=== PATIENT | female | born 1995 | race Caucasian/White ===

== ENCOUNTER 2018-02-27 18:03 | Emergency (ER) | payer SELFPAY ==
--- NOTE | 2018-02-27 18:07 | PDOC ---
Rapid Medical Evaluation Chief Complaint: Foreign Body (FB) Time Seen by Provider: 02/27/18 18:05 Medical Evaluation: Allergies Allergy/AdvReac Type Severity Reaction Status Date / Time No Known Allergies Allergy Verified 08/06/13 12:51 02/27/18 18:05 I have performed a brief in-person evaluation of this patient. The patient presents with a chief complaint of: retained tampon x 3 days- unable to withdrawl Pertinent physical exam findings: can feel FB, no discharge/ mild pain/ no fevers I have ordered the following: nothing The patient will proceed to the ED for further evaluation. 02/27/18 18:05 Discharge Disposition - Diagnosis Foreign body - Referrals - Patient Instructions - Post Discharge Activity
[2018-02-27 18:46] VITALS: BP 108/76; PULSE 76; TEMP 99.2; BMI 20.7
--- NOTE | 2018-02-27 18:52 | PDOC ---
History of Present Illness - General Chief Complaint: Foreign Body (FB) Stated Complaint: Foreign body in vagina Time Seen by Provider: 02/27/18 18:05 History Source: Patient Exam Limitations: No Limitations - History of Present Illness Travel History: No Initial Comments: 02/27/18 18:49 22 yr female with suspected tampon in her vagina since yesterday Past History - Past Medical History Allergies/Adverse Reactions: Allergies Allergy/AdvReac Type Severity Reaction Status Date / Time No Known Allergies Allergy Verified 02/27/18 18:08 Home Medications: Ambulatory Orders No Home Medications 0 dose .ROUTE UTDICT 08/06/13 COPD: No - Suicide/Smoking/Psychosocial Hx Smoking History: Never smoked Number of Cigarettes Smoked Daily: 0 Information on smoking cessation initiated: No Hx Alcohol Use: No Drug/Substance Use Hx: No Substance Use Type: Alcohol Review of Systems - Review of Systems Able to Perform ROS?: Yes Is the patient limited Ukrainian proficient: No : Yes: Symptoms Reported *Physical Exam - Vital Signs Last Vital Signs Temp Pulse Resp BP Pulse Ox 99.2 F 76 17 108/76 100 02/27/18 18:05 02/27/18 18:05 02/27/18 18:05 02/27/18 18:05 02/27/18 18:05 - Physical Exam General Appearance: Yes: Nourished, Appropriately Dressed HEENT: positive: EOMI, MAURISIO Female Pelvic Exam: positive: normal external exam, cervical os closed, normal adnexa, other (no FB in vaginal vault ). negative: discharge, adnexal tenderness Gastrointestinal/Abdominal: positive: Normal Bowel Sounds, Soft. negative: Tender Medical Decision Making - Medical Decision Making 03/03/18 17:17 cc: suspected FB in vagina, pt thinks she may have a tampon in her vagina no pain or discharge no foul odor exam negative, pt also seen and examined by ROLL[employer] PRINTER Adriana Sánchez in the ER no foreign body seen in the vagina pt given dc inst all questions asked and answered *DC/Admit/Observation/Transfer Diagnosis at time of Disposition: Foreign body - Discharge Dispostion Disposition: HOME Condition at time of disposition: Good - Referrals Referrals: Jennifer Coleman MD [Staff Physician] - - Patient Instructions Additional Instructions: please follow with the spiral machine operator Dr. Sarkar for follow up and [facility] exams [facility] return if any foul smelling vaginal discharge or pain - Post Discharge Activity Forms/Work/School Notes: Back to Work, Back to School
== END 2018-02-27 19:00 | disposition home or self-care (01) ==
LOC: JERFT 18:03
DX: T19.2XXA Foreign body in vulva and vagina, initial encounter (principal)
CPT/HCPCS: 99281-25

== ENCOUNTER 2019-05-02 14:32 | Emergency (ER) | payer OTHER ==
[2019-05-02 14:40] VITALS: BP 110/65; PULSE 84; TEMP 98.4; BMI 21.6
--- NOTE | 2019-05-02 15:44 | PDOC ---
History of Present Illness - General Chief Complaint: Cold Symptoms Stated Complaint: COUGHING/CONGESTED Time Seen by Provider: 05/02/19 14:41 - History of Present Illness Initial Comments: 05/02/19 15:42 23-year-old female without comorbidities presents for evaluation of cough x2 weeks without systemic symptoms intermittent chest pain associated with cough Past History - Past Medical History Allergies/Adverse Reactions: Allergies Allergy/AdvReac Type Severity Reaction Status Date / Time No Known Allergies Allergy Verified 02/27/18 18:08 Home Medications: Ambulatory Orders No Home Medications 0 dose .ROUTE UTDICT 08/06/13 COPD: No - Surgical History Cholecystectomy: No - Immunization History Immunization Up to Date: No - Psycho Social/Smoking Cessation Hx Smoking History: Never smoked Have you smoked in the past 12 months: No Number of Cigarettes Smoked Daily: 0 Information on smoking cessation initiated: No Hx Alcohol Use: No Drug/Substance Use Hx: No Substance Use Type: Alcohol Review of Systems - Review of Systems Constitutional: No: Fever Respiratory: Yes: Cough Cardiac (ROS): Yes: Chest Pain *Physical Exam - Vital Signs Last Vital Signs Temp Pulse Resp BP Pulse Ox 98.4 F 84 18 110/65 99 05/02/19 14:35 05/02/19 14:35 05/02/19 14:35 05/02/19 14:35 05/02/19 14:35 - Physical Exam 05/02/19 15:43 GENERAL: The patient is awake, alert, and fully oriented, in no acute distress. HEAD: Normal with no signs of trauma. EYES: sclera anicteric, conjunctiva clear. ENT: Ears normal tympanic membranes normal oropharynx clear uvula midline NECK: Normal range of motion LUNGS: Breath sounds equal, clear to auscultation bilaterally. No wheezes, and no crackles. HEART: S1 and S2 without murmur, rub or gallop. ABDOMEN: Soft, nontender, normoactive bowel sounds. No guarding, no rebound. No masses. EXTREMITIES: Normal range of motion, no edema. No clubbing or cyanosis. No cords, erythema, or tenderness. NEUROLOGICAL: Cranial nerves II through XII grossly intact. Normal speech, normal gait. PSYCH: Normal mood, normal affect. SKIN: Warm, Dry, normal turgor, no rashes or lesions noted. ED Treatment Course - RADIOLOGY Radiology Studies Ordered: Category Date Time Status CHEST PA & LAT [RAD] Stat Radiology 05/02/19 15:14 Taken Medical Decision Making - Medical Decision Making 05/02/19 15:43 Negative chest x-ray EKG G reviewed with attending follow-up with primary care physician Discharge - Discharge Information Problems reviewed: Yes Clinical Impression/Diagnosis: Viral URI with cough Condition: Stable Disposition: HOME - Admission No - Follow up/Referral Referrals: Zachary Weber MD [Staff Physician] - - Patient Discharge Instructions Patient Printed Discharge Instructions: DI for Viral Upper Respiratory Infection -- Adult Additional Instructions: Return to the emergency room for worsening symptoms. Mucinex as directed for cough follow-up with your primary care physician without fail in 2 to 3 days for further evaluation and treatment options and return to the emergency room should symptoms worsen. - Post Discharge Activity
--- NOTE | 2019-05-03 13:34 | EKG ---
Test Reason : Blood Pressure : / mmHG Vent. Rate : 084 BPM Atrial Rate : 084 BPM P-R Int : 144 ms QRS Dur : 082 ms QT Int : 366 ms P-R-T Axes : -34 053 037 degrees QTc Int : 432 ms UNUSUAL P AXIS, POSSIBLE ECTOPIC ATRIAL RHYTHM ABNORMAL ECG NO PREVIOUS ECGS AVAILABLE Confirmed by MELIZA MENESES MD ([id number]) on 05/03/2019 1:34:12 PM Referred By: Confirmed By:MELIZA MENESES MD
== END 2019-05-02 15:54 | disposition home or self-care (01) ==
LOC: JERFT 14:32
DX: J06.9 Acute upper respiratory infection, unspecified (principal); B97.89 Other viral agents as the cause of diseases classified elsewhere
CPT/HCPCS: 71046-TC-FY; 93005; 93010; 99281-25

== ENCOUNTER 2020-07-21 08:05 | Inpatient (IN) | payer OTHER ==
[2020-07-21] MEDS ORDERED: SODIUM CHLORIDE 1,000 ML IV STA (08:39)
[2020-07-21 09:23] LABS: BASO % 0.2 % (0-2.0); EOS % 0.1 % (0-4.5); HEMATOCRIT 40.4 % (32.4-45.2); HEMOGLOBIN 13.7 GM/dL (10.7-15.3); LYMPH % 9.2 % (8-40); MCH 30.6 pg (25.7-33.7); MCHC 34.1 g/dl (32.0-36.0); MEAN CELL VOLUME 89.9 fl (80-96); NEUT % 80.5 % (42.8-82.8); PLATELET COUNT 233 K/MM3 (134-434); RBC 4.49 M/mm3 (3.60-5.2); RDW 14.3 % (11.6-15.6); WHITE BLOOD COUNT 12.2 K/mm3 (4.0-10.0)
[2020-07-21 09:25] LABS: PH,URINE 6.5 (5.0-8.0); URINE APPEARANCE CLEAR; URINE BILIRUBIN NEGATIVE (NEGATIVE); URINE COLOR YELLOW; URINE GLUCOSE (UA) NEGATIVE (NEGATIVE); URINE KETONE NEGATIVE (NEGATIVE); URINE LEUK ESTERASE NEGATIVE (NEGATIVE); URINE NITRITE NEGATIVE (NEGATIVE); URINE PROTEIN NEGATIVE (NEGATIVE); URINE UROBILINOGEN 0.2 mg/dL (0.2-1.0)
[2020-07-21 09:38] LABS: INR 1.03 (0.83-1.09); PROTHROMBIN TIME (PATIENT) 12.4 SEC (9.7-13.0)
[2020-07-21 09:40] LABS: HCG,QUALITATIVE URINE Negative
[2020-07-21 10:04] LABS: POTASSIUM 3.9 mmol/L (3.5-5.1)
[2020-07-21 10:05] LABS: CALCIUM 9.1 mg/dL (8.5-10.1)
[2020-07-21 10:06] LABS: ALBUMIN 3.9 g/dl (3.4-5.0); BLOOD UREA NITROGEN 7.7 mg/dL (7-18)
[2020-07-21 10:09] LABS: CREATININE 0.7 mg/dL (0.55-1.3)
[2020-07-21 10:10] LABS: BILIRUBIN,TOTAL 0.4 mg/dL (0.2-1)
[2020-07-21 10:11] LABS: TOT PROT 7.8 g/dl (6.4-8.2)
[2020-07-21] MEDS ORDERED: CEFTRIAXONE 2 GM-D5W BAG 2 GM/50 ML BAG IVPB ONE (13:09)
[2020-07-21] MEDS ORDERED: ACETAMINOPHEN 1000 MG/100 ML VIAL (NON FORMULARY) IVPB ONE ×2 (13:09→17:53)
[2020-07-21] MEDS ORDERED: ACETAMINOPHEN INJECTION 100 ML IVPB ONE (13:14)
[2020-07-21] MEDS ORDERED: CEFTRIAXONE 2 GM/100 ML BAG IVPB ONE (13:14)
[2020-07-21] MEDS ORDERED: morphine CARPU-JECT 2 MG/1 ML DISP.SYRIN IVPUSH ONE (17:55)
[2020-07-21] MEDS ORDERED: MORPHINE SULFATE 2 MG/ML VIAL ONE (17:57)
[2020-07-21] MEDS ORDERED: ACETAMINOPHEN 325 MG TABLET (FP) ONE (20:46)
[2020-07-21] MEDS: ACETAMINOPHEN 325 MG TABLET (FP) PO PRN (20:51)
[2020-07-22 02:00] VITALS: BMI 20.7
[2020-07-22] MEDS: MORPHINE SULFATE 2 MG/ML VIAL IVPUSH PRN ×2 (06:41→15:07)
[2020-07-22] MEDS: ACETAMINOPHEN 325 MG TABLET (FP) PO PRN ×2 (06:42→16:48)
[2020-07-22 09:22] LABS: BASO % 0.3 % (0-2.0); EOS % 0.1 % (0-4.5); HEMATOCRIT 37.8 % (32.4-45.2); LYMPH % 11.8 % (8-40); MCH 30.8 pg (25.7-33.7); MCHC 34.4 g/dl (32.0-36.0); MEAN CELL VOLUME 89.6 fl (80-96); MEAN PLT VOLUME 8.3 fl (7.5-11.1); MONO % 12.1 % (3.8-10.2); NEUT % 75.7 % (42.8-82.8); PLATELET COUNT 207 K/MM3 (134-434); POTASSIUM 3.6 mmol/L (3.5-5.1); RBC 4.22 M/mm3 (3.60-5.2); RDW 13.8 % (11.6-15.6); WHITE BLOOD COUNT 12.3 K/mm3 (4.0-10.0)
[2020-07-22 09:27] LABS: BLOOD UREA NITROGEN 5.5 mg/dL (7-18); CALCIUM 9.3 mg/dL (8.5-10.1)
[2020-07-22 09:28] LABS: ALBUMIN 3.4 g/dl (3.4-5.0)
[2020-07-22 09:31] LABS: CREATININE 0.6 mg/dL (0.55-1.3)
[2020-07-22 09:32] LABS: BILIRUBIN,TOTAL 0.7 mg/dL (0.2-1)
[2020-07-22 09:33] LABS: TOT PROT 7.4 g/dl (6.4-8.2)
[2020-07-22] MEDS ORDERED: cefTRIAXone SODIUM 1 GM VIAL ONE (09:49)
[2020-07-22] MEDS ORDERED: DEXTROSE 5%-WATER - 50 ML IVPB ONE ×2 (09:49→16:40)
[2020-07-22] MEDS: ENOXAPARIN NA (PORCINE) 40 MG/0.4 ML DISP.SYRIN SQ SCH (09:52)
[2020-07-22] MEDS ORDERED: CEFTRIAXONE 1 GM in DEXTROSE 5%-WATER - 50 ML IVPB SCH (10:00)
[2020-07-22] MEDS: SODIUM CHLORIDE 1,000 ML IV SCH (15:26)
[2020-07-22] MEDS ORDERED: PIPERACILLIN/TAZOBACTAM 3.375 GM VIAL IVPB ONE (16:40)
[2020-07-22] MEDS: PIPERACILLIN/TAZOB 3.375 GM 3.375 GM in DEXTROSE 5%-WATER - 50 ML IVPB SCH (17:47)
[2020-07-22] MEDS: MELATONIN 5 MG TABLETS PO SCH (21:21)
[2020-07-23] MEDS ORDERED: DEXTROSE 5%-WATER - 50 ML IVPB ONE ×3 (00:23→16:24)
[2020-07-23] MEDS ORDERED: PIPERACILLIN/TAZOBACTAM 3.375 GM VIAL IVPB ONE ×3 (00:23→16:24)
[2020-07-23] MEDS: PIPERACILLIN/TAZOB 3.375 GM 3.375 GM in DEXTROSE 5%-WATER - 50 ML IVPB SCH ×3 (01:00→17:16)
[2020-07-23 09:00] LABS: BASO % 0.5 % (0-2.0); EOS % 0.6 % (0-4.5); HEMOGLOBIN 12.7 GM/dL (10.7-15.3); LYMPH % 14.5 % (8-40); MCH 30.9 pg (25.7-33.7); MCHC 34.2 g/dl (32.0-36.0); MEAN CELL VOLUME 90.3 fl (80-96); MEAN PLT VOLUME 8.1 fl (7.5-11.1); MONO % 15.2 % (3.8-10.2); NEUT % 69.2 % (42.8-82.8); PLATELET COUNT 194 K/MM3 (134-434); RDW 13.7 % (11.6-15.6); WHITE BLOOD COUNT 10.7 K/mm3 (4.0-10.0)
[2020-07-23 09:19] LABS: POTASSIUM 4.1 mmol/L (3.5-5.1)
[2020-07-23 09:24] LABS: BLOOD UREA NITROGEN 7.9 mg/dL (7-18)
[2020-07-23 09:27] LABS: CREATININE 0.6 mg/dL (0.55-1.3)
[2020-07-23 09:28] LABS: BILIRUBIN,TOTAL 0.5 mg/dL (0.2-1); TOT PROT 6.8 g/dl (6.4-8.2)
[2020-07-23] MEDS: ENOXAPARIN NA (PORCINE) 40 MG/0.4 ML DISP.SYRIN SQ SCH (09:55)
[2020-07-23] MEDS: SODIUM CHLORIDE 1,000 ML IV SCH (17:16)
[2020-07-23] MEDS: MELATONIN 5 MG TABLETS PO SCH (21:58)
[2020-07-23] MEDS: ACETAMINOPHEN 325 MG TABLET (FP) PO PRN (22:45)
[2020-07-24] MEDS ORDERED: DEXTROSE 5%-WATER - 50 ML IVPB ONE ×2 (02:38→09:13)
[2020-07-24] MEDS ORDERED: PIPERACILLIN/TAZOBACTAM 3.375 GM VIAL IVPB ONE ×2 (02:38→09:12)
[2020-07-24] MEDS: PIPERACILLIN/TAZOB 3.375 GM 3.375 GM in DEXTROSE 5%-WATER - 50 ML IVPB SCH ×2 (02:49→09:15)
[2020-07-24] MEDS: ENOXAPARIN NA (PORCINE) 40 MG/0.4 ML DISP.SYRIN SQ SCH (09:19)
[2020-07-24] MEDS: SODIUM CHLORIDE 1,000 ML IV SCH (09:23)
[2020-07-24 13:44] VITALS: BP 91/51; PULSE 90; TEMP 98.1
== END 2020-07-24 15:44 | disposition home or self-care (01) | DRG 463 ==
LOC: JERFT 08:05 → JER 08:05 → JERBED 13:14 → OBSVTOIN 18:44 → J6S 23:29
PROVIDERS: ADMIT Internal Medicine; ATTEND Internal Medicine
DX: N12 Tubulo-interstitial nephritis, not specified as acute or chronic (principal); N28.0 Ischemia and infarction of kidney; R31.0 Gross hematuria; D72.829 Elevated white blood cell count, unspecified
CPT/HCPCS: 36415; 74177-TC; 80053; 81003; 83615; 84703; 85025; 85610; 85730; 87086; 87186; 87491; 87591; 93005; 93010; 99285-25; C9803; G0378; J0131; Q9967; U0003; U0005

== ENCOUNTER 2021-06-07 08:32 | Emergency (ER) | payer OTHER ==
[2021-06-07 08:40] VITALS: BP 108/58; PULSE 94; TEMP 97.3; BMI 21.6
[2021-06-07] MEDS ORDERED: KETOROLAC TROMETHAMINE 30 MG/1 ML VIAL IM ONE (09:24)
[2021-06-07 09:38] LABS: EPI CELLS 8 /uL (0-25.1); HYALINE CASTS 1 /uL (0-3.1); PH,URINE 6.5 (5.0-8.0); URINE APPEARANCE CLEAR; URINE BACTERIA 62 /uL (0-1359); URINE BILIRUBIN NEGATIVE (NEGATIVE); URINE COLOR YELLOW; URINE GLUCOSE (UA) NEGATIVE (NEGATIVE); URINE KETONE NEGATIVE (NEGATIVE); URINE LEUK ESTERASE NEGATIVE (NEGATIVE); URINE NITRITE NEGATIVE (NEGATIVE); URINE PROTEIN NEGATIVE (NEGATIVE); URINE RBC 7 /uL (0-23.9); URINE UROBILINOGEN 0.2 mg/dL (0.2-1.0); URINE WBC 5 /uL (0-25.8)
[2021-06-07 09:48] LABS: HCG,QUALITATIVE URINE Negative
[2021-06-07] MEDS ORDERED: KETOROLAC TROMETHAMINE 30 MG/1 ML VIAL ONE (09:50)
[2021-06-07 10:08] LABS: BASO % 0.7 % (0-2.0); HEMATOCRIT 39.8 % (32.4-45.2); HEMOGLOBIN 13.6 GM/dL (10.7-15.3); LYMPH % 35.2 % (8-40); MCH 30.4 pg (25.7-33.7); MCHC 34.2 g/dl (32.0-36.0); MEAN PLT VOLUME 7.4 fl (7.5-11.1); MONO % 8.3 % (3.8-10.2); NEUT % 53.8 % (42.8-82.8); PLATELET COUNT 245 10^3/uL (134-434); RBC 4.47 M/mm3 (3.60-5.2); RDW 13.2 % (11.6-15.6); WHITE BLOOD COUNT 4.5 K/mm3 (4.0-10.0)
[2021-06-07 13:44] LABS: ALBUMIN 4.1 g/dl (3.4-5.0); BILIRUBIN,TOTAL 0.4 mg/dL (0.2-1); BLOOD UREA NITROGEN 8.8 mg/dL (7-18); CALCIUM 9.4 mg/dL (8.5-10.1); CREATININE 0.4 mg/dL (0.55-1.3); TOT PROT 7.5 g/dl (6.4-8.2)
== END 2021-06-07 12:30 | disposition home or self-care (01) ==
LOC: JER 08:32
PROC: 3E0233Z Introduction of Anti-inflammatory into Muscle, Percutaneous Approach (ICD-10-PCS; principal; 2021-06-07)
DX: N94.6 Dysmenorrhea, unspecified (principal)
CPT/HCPCS: 36415; 76830-TC; 80053; 81003; 84703; 85025; 87086; 87186; 99284-25

== ENCOUNTER 2022-09-17 10:11 | Emergency (ER) | payer OTHER ==
[2022-09-17 10:27] VITALS: BP 103/68; PULSE 98; RESP 20; TEMP 97.5; BMI 20.7
[2022-09-17] MEDS ORDERED: IBUPROFEN 400 MG TABLET (FP) PO ONE ×2 (10:51→10:58)
== END 2022-09-17 11:18 | disposition home or self-care (01) ==
LOC: JERFT 10:11
DX: S93.402A Sprain of unspecified ligament of left ankle, initial encounter (principal); M25.572 Pain in left ankle and joints of left foot; R22.42 Localized swelling, mass and lump, left lower limb; X50.1XXA Overexertion from prolonged static or awkward postures, initial encounter
CPT/HCPCS: 73610-TC-LT-FY; 73630-TC-LT; 99283-25

== ENCOUNTER 2023-09-10 07:30 | Inpatient (IN) | payer OTHER ==
[2023-09-10] MEDS: ELECTROLYTE-148 SOLN 1,000 ML IV SCH (09:25)
[2023-09-10 09:39] LABS: BASO % 0.3 % (0-2.0); EOS % 0.9 % (0-4.5); HEMATOCRIT 33.3 % (32.4-45.2); HEMOGLOBIN 11.3 GM/dL (10.7-15.3); LYMPH % 21.4 % (8-40); MCH 28.5 pg (25.7-33.7); MEAN PLT VOLUME 8.5 fl (7.5-11.1); MONO % 8.1 % (3.8-10.2); NEUT % 69.3 % (42.8-82.8); PLATELET COUNT 217 10^3/uL (134-434); RBC 3.96 M/mm3 (3.60-5.2); RDW 14.7 % (11.6-15.6); WHITE BLOOD COUNT 8.1 K/mm3 (4.0-10.0)
[2023-09-10 09:48] LABS: INR 0.93 (0.83-1.09); PROTHROMBIN TIME (PATIENT) 10.5 SEC (9.7-13.0)
[2023-09-10 09:50] LABS: ACTIVATED PTT 26.8 SECONDS (25.2-36.5)
[2023-09-10 10:02] LABS: POTASSIUM 3.7 mmol/L (3.5-5.1)
[2023-09-10 10:04] LABS: BLOOD UREA NITROGEN 9.4 mg/dL (7-18); CALCIUM 8.6 mg/dL (8.5-10.1)
[2023-09-10 10:08] LABS: CREATININE 0.5 mg/dL (0.55-1.3)
[2023-09-10 10:21] VITALS: BMI 29.6
[2023-09-10 11:10] LABS: HIV INTERPRETATION NEGATIVE (NEGATIVE)
[2023-09-10] MEDS ORDERED: FENTANYL/BUPIVACAINE/NS/PF - PCEA - 50 ML DISP.SYRIN EP ONE (11:21)
[2023-09-10] MEDS ORDERED: BUPIVACAINE HCL/PF 0.25% (2.5MG/ML) 10 ML VIAL ONE (11:43)
[2023-09-10] MEDS: FENTANYL/BUPIVACAINE/NS/PF - PCEA - 50 ML DISP.SYRIN EP SCH (12:00)
[2023-09-10] MEDS ORDERED: OXYTOCIN 30 UNITS in 0.9% NS 30 UNIT/500 ML INFUS.BAG IVPB ONE (12:15)
[2023-09-10] MEDS: OXYTOCIN 30 UNITS in 0.9% NS 30 UNIT/500 ML INFUS.BAG IVPB SCH (12:20)
[2023-09-10] MEDS ORDERED: NALOXONE HCL 0.4 MG/ML VIAL IVPUSH PRN (12:50)
[2023-09-10] MEDS ORDERED: OXYTOCIN 20 UNITS in 0.9% NS 20 UNIT/1,000 ML INFUS.BAG IV ONE (14:56)
[2023-09-10] MEDS: OXYTOCIN 20 UNITS in 0.9% NS 20 UNIT/1,000 ML INFUS.BAG IV SCH (15:27)
[2023-09-10] MEDS ORDERED: METHYLERGONOVINE MALEATE 0.2 MG/1 ML AMP IM PRN (16:07)
[2023-09-10] MEDS ORDERED: WITCH HAZEL 50% (TUCKS) 40 PAD/JAR PAD TP PRN (16:07)
[2023-09-10] MEDS ORDERED: ACETAMINOPHEN 325 MG TABLET (FP) PO PRN (16:07)
[2023-09-10] MEDS ORDERED: BISACODYL 10 MG SUPP.RECT RC PRN (16:07)
[2023-09-10] MEDS ORDERED: BENZOCAINE 28 GM HEMORRHOIDAL OINTMENT TP PRN (16:07)
[2023-09-10] MEDS: BENZOCAINE 20% 57 GM BOTTLE TP PRN (18:57)
[2023-09-11] MEDS: IBUPROFEN 600 MG TABLET (FP) PO PRN (05:50)
[2023-09-11 06:47] LABS: BASO % 0.5 % (0-2.0); EOS % 1.6 % (0-4.5); HEMOGLOBIN 10.5 GM/dL (10.7-15.3); LYMPH % 20.2 % (8-40); MCH 27.7 pg (25.7-33.7); MCHC 32.8 g/dl (32.0-36.0); MEAN CELL VOLUME 84.4 fl (80-96); MEAN PLT VOLUME 8.4 fl (7.5-11.1); MONO % 9.9 % (3.8-10.2); NEUT % 67.8 % (42.8-82.8); PLATELET COUNT 192 10^3/uL (134-434); RBC 3.79 M/mm3 (3.60-5.2); RDW 14.5 % (11.6-15.6); WHITE BLOOD COUNT 9.4 K/mm3 (4.0-10.0)
[2023-09-11] MEDS: PRENATAL VITAMINS W/ FOLIC ACID TABLET (FP) PO SCH (09:52)
[2023-09-11] MEDS: oxyCODONE HCL 5 MG TABLET PO PRN (16:28)
[2023-09-11 21:15] VITALS: RESP 18
[2023-09-12] MEDS: SENNOSIDES/DOCUSATE COMBO (SENNA PLUS) TABLET (UD) PO PRN (01:02)
[2023-09-12 10:10] VITALS: BP 106/68; PULSE 92; TEMP 97.9
== END 2023-09-12 13:50 | disposition home or self-care (01) | DRG 560 ==
LOC: JDEL 07:30 → JLDR 08:15 → J3W 17:42
PROVIDERS: ADMIT Specialist; ATTEND Specialist
PROC: 10E0XZZ Delivery of Products of Conception, External Approach (ICD-10-PCS; principal; 2023-09-10)
PROC: 0HQ9XZZ Repair Perineum Skin, External Approach (ICD-10-PCS; 2023-09-10)
DX: O70.0 First degree perineal laceration during delivery (principal); Z3A.39 39 weeks gestation of pregnancy; Z37.0 Single live birth
CPT/HCPCS: 36415; 59409; 80048; 85025; 85610; 85730; 86780; 86850; 86900; 86901; 87389